=== PATIENT | female | born 1990 | race Caucasian/White ===

== ENCOUNTER 2017-06-20 21:42 | Emergency (ER) | payer OTHER ==
[~2017-06-20 21:42] MED LIST: BENZONATATE PO; CIPRO PO; DIAZEPAM PO; DOXYCYCLINE HY100 M1 PO; FAMVIR250 MG PO; FLAGYL PO; IBUPROFEN600 MG PO; IMODIUM2 MG PO; LORTAB 10-5001 EACH PO; NAPROSYN500 MG PO; PERCOCET 5-3251 TAB PO; PHENERGAN25 M1 PO; PHENERGAN25 MG PO; TORADOL10 MG PO; VIBRAMYCIN100 M1 PO; VICODIN 5/1 TAB 5/50 PO
== END 2017-06-20 23:20 | disposition home or self-care (01) ==
LOC: CED 21:42
DX: K04.7 Periapical abscess without sinus (principal); K02.9 Dental caries, unspecified; F17.200 Nicotine dependence, unspecified, uncomplicated; F32.9 Major depressive disorder, single episode, unspecified; F41.9 Anxiety disorder, unspecified; Z88.0 Allergy status to penicillin; Z88.1 Allergy status to other antibiotic agents; Z91.040 Latex allergy status; Z88.8 Allergy status to other drugs, medicaments and biological substances
CPT/HCPCS: 99283